=== PATIENT | male | born 1990 | race Two or more races ===

== ENCOUNTER 2018-04-20 11:47 | Emergency (ER) | payer SELFPAY ==
[~2018-04-20] VITALS: Ht 182.9 cm; Wt 91.0 kg
[2018-04-20] MEDS ORDERED: IBUPROFEN 600MG TABLET PO ONE (12:45)
[2018-04-20 14:20] VITALS: BP 124/68
== END 2018-04-20 14:40 | disposition home or self-care (01) ==
LOC: ER 11:58
DX: S93.401A Sprain of unspecified ligament of right ankle, initial encounter (principal); F17.200 Nicotine dependence, unspecified, uncomplicated; Z90.49 Acquired absence of other specified parts of digestive tract; X50.9XXA Other and unspecified overexertion or strenuous movements or postures, initial encounter; Y93.89 Activity, other specified; Y92.89 Other specified places as the place of occurrence of the external cause; Y99.8 Other external cause status
CPT/HCPCS: 73590; 73610; 99283